=== PATIENT | male | born 1975 | race Caucasian/White ===

== ENCOUNTER 2017-08-31 15:39 | Emergency (ER) | payer SELFPAY ==
--- NOTE | 2017-08-31 17:40 | EDM.PDOC ---
ED HPI GENERAL MEDICAL PROBLEM - General Chief Complaint: ENT Problem Stated Complaint: LOSS OF HEARING/RINGING IN RIGHT EAR Time Seen by Provider: 08/31/17 17:20 Source of Information: Reports: Patient History Limitations: Reports: No Limitations - History of Present Illness INITIAL COMMENTS - FREE TEXT/NARRATIVE: 41 yo male presents to the ED for R side ear ringing and decreased hearing with associated R side headache. He denies any trauma to the head or ear, he woke up this morning and that is when symptoms started. He does not have any ear pain or tenderness to palpation. He has had an URI for the past week which he believes is improving. He has been using Tylenol for his headache. The headache is described as throbbing and does not radiate. It is located only on the right side of the head. He said his ears feel full. He is a current smoker , denies cough, dyspnea or shortness of breath. He denies fever, chills, night sweats. 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 [No Known Home Meds] 11/06/14 [History] Past Medical History HEENT History: Reports: Impaired Vision - Past Surgical History Musculoskeletal Surgical History: Reports: Shoulder Surgery Other Musculoskeletal Surgeries/Procedures:: right wrist surgery Social & Family History - Family History Family Medical History: Noncontributory - Tobacco Use Smoking Status *Q: Current Every Day Smoker Years of Tobacco use: 25 Packs/Tins Daily: 1 - Caffeine Use Caffeine Use: Reports: Energy Drinks - Recreational Drug Use Recreational Drug Use: No ED ROS ENT - Review of Systems Review Of Systems: See Below Constitutional: Reports: No Symptoms. Denies: Fever, Chills, Malaise HEENT: Reports: Other (improving URI, mild nasal congestion x 1 week. Ears feel full and ringing in the right ear). Denies: Dental Pain, Ear Discharge, Ear Pain Respiratory: Reports: No Symptoms. Denies: Shortness of Breath, Wheezing, Pleuritic Chest Pain, Cough Cardiovascular: Reports: No Symptoms Endocrine: Reports: No Symptoms GI/Abdominal: Reports: No Symptoms : Reports: No Symptoms Musculoskeletal: Reports: No Symptoms Skin: Reports: No Symptoms Neurological: Reports: No Symptoms (R side, throbbing), Headache. Denies: Dizziness, Numbness, Tingling, Difficulty Walking, Weakness Psychiatric: Reports: No Symptoms Hematologic/Lymphatic: Reports: No Symptoms Immunologic: Reports: No Symptoms ED EXAM, ENT - Physical Exam Exam: See Below Exam Limited By: No Limitations General Appearance: Alert, WD/WN, No Apparent Distress Ears: Normal External Exam, Normal Canal, Hearing Grossly Normal, TM Obscured by Cerumen (bilaterally). No: Auricular Tenderness, Mastoid Swelling, Mastoid Tenderness Respiratory/Chest: No Respiratory Distress, No Accessory Muscle Use, Wheezing ( mild scattered expiratory wheezes) Cardiovascular: Normal Peripheral Pulses, Regular Rate, Rhythm, No Edema, No Gallop, No Murmur, No Rub Neurological: Alert, Oriented, Normal Cognition, No Motor/Sensory Deficits Psychiatric: Normal Affect, Normal Mood Skin: Warm, Dry, Intact, Normal Color Course - Vital Signs Last Recorded V/S: Last Vital Signs Temp 98.3 F 08/31/17 15:53 Pulse 77 08/31/17 15:53 Resp 18 08/31/17 15:53 BP 132/81 08/31/17 15:53 Pulse Ox 98 08/31/17 15:53 Departure - Departure Time of Disposition: 18:39 Disposition: Home, Self-Care 01 Condition: Good Clinical Impression: Impacted cerumen of both ears - Discharge Information Instructions: Earwax Buildup, Adult Referrals: PCP,None [Primary Care Provider] - Forms: ED Department Discharge Additional Instructions: You were seen today for impacted wax in both ears. We were unable to clear the wax because of how hard it was and attached to the skin of your ear. We recommend using Debrox drops, mineral oil or olive oil to soften the wax before trying to remove it. Add a few drops of oil or debrox and let it sit for 5-10 minutes in each side. Using the bulb or the shower water pressure continue to irrigate ears with warm water. We recommend saline nasal rinses as well as a nasal steroid spray such as flonase, over the counter, to help ease nasal and ear congestion and fullness. If symptoms worsen or you develop ear pain, worsening sinus symptoms or fever please return to the ER or to the walk-in clinic for further evaluation. Continue to use Tylenol and Ibuprofen as needed for headache.
[2017-08-31 18:56] VITALS: BP 120/89
== END 2017-08-31 19:00 | disposition home or self-care (01) ==
LOC: JD.ED 15:39
DX: H61.23 Impacted cerumen, bilateral (principal); F17.210 Nicotine dependence, cigarettes, uncomplicated
CPT/HCPCS: 69209; 69210; 99284-25

== ENCOUNTER 2019-09-20 19:31 | Emergency (ER) | payer SELFPAY ==
[2019-09-20 19:53] VITALS: BP 157/117; PULSE 70
[2019-09-20] MEDS ORDERED: Ibuprofen 800 MG Tab PO ONE (19:58)
--- NOTE | 2019-09-20 20:00 | EDM.PDOC ---
ED HPI GENERAL MEDICAL PROBLEM - General Chief Complaint: Chest Pain Stated Complaint: MEDICAL CLEARENCE Time Seen by Provider: 09/20/19 19:59 Source of Information: Reports: Patient, Police History Limitations: Reports: No Limitations - History of Present Illness INITIAL COMMENTS - FREE TEXT/NARRATIVE: The patient is an unfortunate 43-year-old male who presents emergency department today with complaint of left-sided chest pain. Patient reports that he is having sharp stabbing-like chest pain at his left sternal border on the third and fourth intercostal space. Patient reports pain is worse with palpation or deep inspiration improves with rest does not alleviate. Patient reports he was sitting at rest when he started having the pain after he was arrested. No fever no chills no cough no congestion no shortness of breath. Patient does report that the pain radiates to his left arm. 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 nor has he had a stress test or a cardiac catheterization in the past Left Chest Pain Score (Numeric/FACES): 6 - Related Data Allergies Allergy/AdvReac Type Severity Reaction Status Date / Time No Known Allergies Allergy Verified 09/20/19 19:53 Home Meds: Home Meds Diclofenac Sodium [Voltaren] 75 mg PO BIDMEALS PRN #20 tab.cr 07/26/19 [Rx] Past Medical History HEENT History: Reports: Impaired Vision Cardiovascular History: Reports: None Respiratory History: Reports: None Gastrointestinal History: Reports: None Genitourinary History: Reports: None Musculoskeletal History: Reports: None Neurological History: Reports: None Psychiatric History: Reports: None Endocrine/Metabolic History: Reports: None Hematologic History: Reports: None Immunologic History: Reports: None Oncologic (Cancer) History: Reports: None Dermatologic History: Reports: None - Infectious Disease History Infectious Disease History: Reports: None - Past Surgical History Musculoskeletal Surgical History: Reports: Shoulder Surgery Other Musculoskeletal Surgeries/Procedures:: right wrist surgery Social & Family History - Family History Family Medical History: Noncontributory - Tobacco Use Smoking Status *Q: Current Every Day Smoker Years of Tobacco use: 25 Packs/Tins Daily: 1.5 - Caffeine Use Caffeine Use: Reports: None - Recreational Drug Use Recreational Drug Use: No ED ROS GENERAL - Review of Systems Review Of Systems: See Below Constitutional: Denies: Fever, Chills Respiratory: Denies: Shortness of Breath, Cough Cardiovascular: Reports: Chest Pain. Denies: Dyspnea on Exertion, Edema ED EXAM, GENERAL - Physical Exam Exam: See Below Exam Limited By: No Limitations General Appearance: Alert, WD/WN, Mild Distress Nose: Normal Inspection, Normal Mucosa, No Blood Throat/Mouth: Normal Inspection, Normal Lips, Normal Teeth, Normal Gums, Normal Oropharynx, Normal Voice, No Airway Compromise Head: Atraumatic, Normocephalic Neck: Normal Inspection, Supple, Non-Tender, Full Range of Motion Respiratory/Chest: No Respiratory Distress, Lungs Clear, Normal Breath Sounds, No Accessory Muscle Use, Other (Longer left sternal border 3rd-4th intercostal space completely reproduces pain) Cardiovascular: Normal Peripheral Pulses, Regular Rate, Rhythm, No Edema, No Gallop, No JVD, No Murmur, No Rub GI/Abdominal: Normal Bowel Sounds, Soft, Non-Tender, No Organomegaly, No Distention, No Abnormal Bruit, No Mass Back Exam: Normal Inspection, Full Range of Motion, NT Extremities: Normal Inspection, Normal Range of Motion, Non-Tender, Normal Capillary Refill, No Pedal Edema Neurological: Alert, Oriented Skin Exam: Warm, Dry EKG INTERPRETATION EKG Date: 09/20/19 Time: 20:09 Rhythm: NSR [place]: Normal P-Wave: Present QRS: Normal ST-T: Normal QT: Normal Course - Vital Signs Text/Narrative:: Chest x-ray interpreted by me NAD Last Recorded V/S: Last Vital Signs Temp 98.9 F 09/20/19 19:52 Pulse 70 09/20/19 19:52 Resp 30 H 09/20/19 19:52 BP 157/117 H 09/20/19 19:52 Pulse Ox 94 L 09/20/19 19:52 - Orders/Labs/Meds Orders: Active Orders 24 hr Category Date Time Status EKG 12 Lead [EKG Documentation Completion] [RC] STAT Care 09/20/19 19:56 Active Chest 2V [CR] Stat Exams 09/20/19 19:58 Taken Labs: Laboratory Tests 09/20/19 09/20/19 Range/Units 20:24 20:24 WBC 11.12 H (4.23-9.07) K/mm3 RBC 4.83 (4.63-6.08) M/mm3 Hgb 16.1 (13.7-17.5) gm/dl Hct 47.3 (40.1-51.0) % MCV 97.9 H (79.0-92.2) fl MCH 33.3 H (25.7-32.2) pg MCHC 34.0 (32.2-35.5) g/dl RDW Std Deviation 45.1 H (35.1-43.9) fL Plt Count 257 (163-337) K/mm3 MPV 9.3 L (9.4-12.3) fl Neut % (Auto) 80.4 H (34.0-67.9) % Lymph % (Auto) 12.8 L (21.8-53.1) % [place] % (Auto) 5.6 (5.3-12.2) % Eos % (Auto) 0.7 L (0.8-7.0) Baso % (Auto) 0.3 (0.1-1.2) % Neut # (Auto) 8.95 H (1.78-5.38) K/mm3 Lymph # (Auto) 1.42 (1.32-3.57) K/mm3 [place] # (Auto) 0.62 (0.30-0.82) K/mm3 Eos # (Auto) 0.08 (0.04-0.54) K/mm3 Baso # (Auto) 0.03 (0.01-0.08) K/mm3 Manual Slide Review Abnormal smear Sodium 140 (136-145) mEq/L Potassium 3.7 (3.5-5.1) mEq/L Chloride 104 (98-107) mEq/L Carbon Dioxide 22 (21-32) mEq/L Anion Gap 17.7 H (5-15) BUN 14 (7-18) mg/dL Creatinine 1.1 (0.7-1.3) mg/dL Est Cr Clr Drug Dosing 101.03 mL/min Estimated GFR (MDRD) > 60 (>60) mL/min BUN/Creatinine Ratio 12.7 L (14-18) Glucose 96 (74-106) mg/dL Calcium 8.9 (8.5-10.1) mg/dL Total Bilirubin 0.4 (0.2-1.0) mg/dL AST 32 (15-37) U/L ALT 48 (16-63) U/L Alkaline Phosphatase 92 (46-116) U/L Troponin I < 0.017 (0.00-0.056) ng/mL Total Protein 7.5 (6.4-8.2) g/dl Albumin 3.7 (3.4-5.0) g/dl Globulin 3.8 gm/dL Albumin/Globulin Ratio 1.0 (1-2) Meds: Medications Discontinued Medications Generic Name Dose Route Start Last Admin Trade Name [place] PRTod Reason Stop Dose Admin Ibuprofen 800 mg 09/20/19 19:58 09/20/19 20:09 Motrin PO 09/20/19 19:59 800 mg ONETIME ONE Administration - Re-Assessments/Exams Free Text/Narrative Re-Assessment/Exam: 09/20/19 21:40 Labs are reassuring the patient has no evidence of acute coronary syndrome at this time suspect the patient has pleurisy will discharge Departure - Departure Time of Disposition: 21:40 Disposition: Home, Self-Care 01 Condition: Good Clinical Impression: Pleurisy Referrals: PCP,None [Primary Care Provider] - Forms: ED Department Discharge Additional Instructions: Home, rest, Tylenol or Motrin for pain, return as needed for any worsening condition patient is medically stable and cleared to leave the emergency department Sepsis Event Note (ED) - Evaluation Sepsis Screening Result: No Definite Risk - Focused Exam Vital Signs: Vital Signs Temp Pulse Resp BP Pulse Ox 09/20/19 19:52 98.9 F 70 30 H 157/117 H 94 L - My Orders Last 24 Hours: My Active Orders 09/20/19 19:56 EKG 12 Lead [EKG Documentation Completion] [RC] STAT 09/20/19 19:58 Chest 2V [CR] Stat - Assessment/Plan Last 24 Hours: My Active Orders 09/20/19 19:56 EKG 12 Lead [EKG Documentation Completion] [RC] STAT 09/20/19 19:58 Chest 2V [CR] Stat
--- NOTE | 2019-09-21 06:56 | CR ---
Chest: 2 views of the chest were obtained. Comparison: No prior chest imaging is available. Heart size and mediastinum are normal. Old healed left sided rib fractures are seen. No acute osseous finding is appreciated. Lungs show no acute parenchymal change. Impression: 1. Old healed left-sided rib fractures. 2. Nothing acute is identified on 2 view chest x-ray. Diagnostic code #2 This report was dictated in MDT
== END 2019-09-20 21:45 | disposition home or self-care (01) ==
LOC: JD.ED 19:31
DX: R09.1 Pleurisy (principal); F17.210 Nicotine dependence, cigarettes, uncomplicated
CPT/HCPCS: 36415; 71046; 80053; 84484; 85025; 93005; 99285; A9270